=== PATIENT | female | born 1995 | race Hispanic/Latino ===

== ENCOUNTER 2016-11-20 10:35 | Emergency (ER) | payer MEDICAID ==
[2016-11-20 11:08] VITALS: BP 103/63
[2016-11-20] MEDS ORDERED: FLEXERIL PO ONE (17:17)
[2016-11-20] MEDS ORDERED: TORADOL IM ONE (17:17)
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
== END 2016-11-20 18:12 | disposition home or self-care (01) ==
LOC: ED 10:35
DX: M54.5 Low back pain (principal); S39.012S Strain of muscle, fascia and tendon of lower back, sequela; F17.200 Nicotine dependence, unspecified, uncomplicated; V89.2XXS Person injured in unspecified motor-vehicle accident, traffic, sequela; Z88.8 Allergy status to other drugs, medicaments and biological substances
CPT/HCPCS: 96372; 99282; J1885

== ENCOUNTER 2017-01-16 19:54 | Emergency (ER) | payer SELFPAY ==
[2017-01-16 21:38] VITALS: BP 108/56
--- NOTE | 2017-01-16 22:34 | XRay Report ---
FINAL REPORT PROCEDURE: XR KNEE 3V RT TECHNIQUE: Laterality knee radiographs, AP, lateral and oblique views. CPT 14628 HISTORY: fall with knee pain COMPARISON: No prior studies are available for comparison. FINDINGS: Fracture (s) and/or Dislocation(s): None . Alignment: Normal . Joint space(s): Normal . Soft tissues: Normal . Bone mineralization: Normal . Foreign bodies: None . IMPRESSION: Negative examination.
[2017-01-16] MEDS ORDERED: MOTRIN PO ONE (23:11)
[2017-01-16] MEDS ORDERED: TYLENOL #3 PO ONE (23:12)
--- NOTE | 2017-01-16 23:23 | Emergency Department Report ---
ED Lower Extremity HPI - General Chief Complaint: Extremity Injury, Lower Stated Complaint: BACK PAIN Time Seen by Provider: 01/16/17 22:51 Source: patient Mode of arrival: Ambulatory Limitations: No Limitations - History of Present Illness Initial Comments: 21-year-old female past medical history none presents with complaint of right knee pain and some lower back pain status post fall. Patient states she tripped down steps earlier this evening. Denies any head trauma denies any loss of consciousness. States that her right knee twisted slightly. Denies any loss of consciousness denies sustaining any lacerations or abrasions. Fall witnessed by family members. Fell approximately 5 steps. He adamantly denies loss of consciousness or head trauma. Patient is awake alert and oriented 3 fully lucid accompanied by family members. Patient is visibly ambulatory and limping slightly due to right knee pain. States that her right knee aches. Pain currently a 4/10 as per patient. MD Complaint: knee injury Onset/Timin -: hour(s), This evening Injury: Knee: Right Type of Injury: blunt Place: home Severity: moderate Severity scale (0 -10): 4 Improves With: cold therapy, immobilization Worsens With: nothing Associated Symptoms: swelling, ambulatory - Related Data Previous Rx's Medication Instructions Recorded Last Taken Type Cyclobenzaprine [Flexeril] 10 mg PO QHS PRN #20 tablet 11/20/16 Unknown Rx Naproxen [Naprosyn] 500 mg PO BID #30 tablet 11/20/16 Unknown Rx Naproxen 250 mg PO BID PRN #30 tablet 01/16/17 Unknown Rx Allergies Allergy/AdvReac Type Severity Reaction Status Date / Time decongestant Allergy Unknown Uncoded 11/20/16 11:09 ED Review of Systems ROS: Stated complaint: BACK PAIN Other details as noted in HPI Constitutional: denies: chills, fever Eyes: denies: eye pain, eye discharge, vision change ENT: denies: ear pain, throat pain Respiratory: denies: cough, shortness of breath, wheezing Cardiovascular: denies: chest pain, palpitations Endocrine: no symptoms reported Gastrointestinal: denies: abdominal pain, nausea, diarrhea Genitourinary: denies: urgency, dysuria, discharge Musculoskeletal: denies: back pain, joint swelling, arthralgia Skin: denies: rash, lesions Neurological: denies: headache, weakness, paresthesias Psychiatric: denies: anxiety, depression Hematological/Lymphatic: denies: easy bleeding, easy bruising ED Past Medical Hx - Past Medical History Previous Medical History?: No - Surgical History Past Surgical History?: No - Social History Smoking Status: Never Smoker - Medications Home Medications: Home Medications Medication Instructions Recorded Confirmed Last Taken Type Cyclobenzaprine [Flexeril] 10 mg PO QHS PRN #20 tablet 11/20/16 Unknown Rx Naproxen [Naprosyn] 500 mg PO BID #30 tablet 11/20/16 Unknown Rx Naproxen 250 mg PO BID PRN #30 tablet 01/16/17 Unknown Rx ED Physical Exam - General Limitations: No Limitations General appearance: alert, in no apparent distress - Head Head exam: Present: atraumatic, normocephalic - Eye Eye exam: Present: normal appearance, PERRL, EOMI - ENT ENT exam: Present: mucous membranes moist - Neck Neck exam: Present: normal inspection, full ROM (neck flexion and extension lateral rotation intact no midline tenderness) - Respiratory Respiratory exam: Present: normal lung sounds bilaterally. Absent: respiratory distress - Cardiovascular Cardiovascular Exam: Present: regular rate, normal rhythm. Absent: systolic murmur, diastolic murmur, rubs, gallop - GI/Abdominal GI/Abdominal exam: Present: soft (abdomen soft nontender nondistended on exam), normal bowel sounds - Extremities Exam Extremities exam: Present: normal inspection - Expanded Lower Extremity Exam Right Hip exam: Present: normal inspection, full ROM Upper Leg exam: Present: normal inspection, full ROM Knee exam: Present: normal inspection, full ROM (knee flexion and extension intact on exam), tenderness (minimal anterior knee tenderness on palpation) Lower Leg exam: Present: normal inspection, full ROM Ankle exam: Present: normal inspection, full ROM Foot/Toe exam: Present: normal inspection, full ROM Neuro vascular tendon exam: Present: no vascular compromise (distal dorsalis pedis and posterior tibial pulses intact) 1 - anterior knee pain here - Back Exam Back exam: Present: normal inspection - Neurological Exam Neurological exam: Present: alert, oriented X3, CN II-XII intact, normal gait ( all) - Expanded Neurological Exam Expanded Patient oriented to: Present: person, place, time Cranial nerves: EOM's Intact: Normal, Facial Sensation: Normal Sensory exam: Upper Extremity Light Touch: Normal, Lower Extremity Light Touch: Normal Motor strength exam: RUE: 5, LUE: 5, RLE: 5, LLE: 5 Best Eye Response (Prashant): (4) open spontaneously Best Motor Response (Prashant): (6) obeys commands Best Verbal Response ([place]): (5) oriented [place] Total: 15 - Psychiatric Psychiatric exam: Present: normal affect, normal mood - Skin Skin exam: Present: warm, dry, intact, normal color. Absent: rash ED Course Vital Signs 01/16/17 21:35 Temperature 97.9 F Pulse Rate 86 Respiratory 16 Rate Blood Pressure 108/56 O2 Sat by Pulse 97 Oximetry ED Lower Extremity MDM - Medical Decision Making A/P: Right knee pain/sprain 1-patient is ambulatory strength 5 out of 5 bilateral lower extremities, fully lucid no reported head trauma. Nexus criteria negative, [place] head CT rules negative 2-[place] wrap, NSAIDs when necessary, RICE therapy 3-patient is ambulatory without assistance 4-follow-up with primary care doctor Critical care attestation.: If time is entered above; I have spent that time in minutes in the direct care of this critically ill patient, excluding procedure time. ED Disposition Clinical Impression: Right knee pain Qualifiers: Chronicity: acute Qualified Code(s): M25.561 - Pain in right knee Fall Qualifiers: Encounter type: initial encounter Qualified Code(s): W19.XXXA - Unspecified fall, initial encounter Disposition: TO HOME OR SELFCARE Is pt being admited?: No Does the pt Need Aspirin: No Condition: Stable Instructions: Arthralgia (ED), Knee Pain (ED), Knee Effusion (ED), Patellofemoral Pain Syndrome (ED) Prescriptions: Naproxen 250 mg PO BID PRN #30 tablet PRN Reason: Pain Referrals: [facility] [Outside] - 3-5 Days [facility] [Outside] - 3-5 Days Time of Disposition: 23:23
== END 2017-01-16 23:33 | disposition home or self-care (01) ==
LOC: ED 19:54
DX: M25.561 Pain in right knee (principal); W10.9XXA Fall (on) (from) unspecified stairs and steps, initial encounter; Y93.89 Activity, other specified; Y99.8 Other external cause status; Y92.098 Other place in other non-institutional residence as the place of occurrence of the external cause
CPT/HCPCS: 99284